=== PATIENT | female | born 1995 ===

== ENCOUNTER 2020-08-26 04:44 | Observation (INO) | payer MEDICAID ==
[~2020-08-26] VITALS: Ht 160 cm; Wt 94.8 kg
[2020-08-26] MEDS ORDERED: cefTRIAXone 1,000 MG VIAL ONE (05:27)
[2020-08-26] MEDS: NACL 0.9% 1,000 ML IV SCH ×2 (05:31→06:54)
[2020-08-26 05:33] LABS: APPEARANCE,URINE CLEAR (CLEAR); BILIRUBIN,URINE NEGATIVE (NEGATIVE); BLOOD, URINE TRACE-I (NEGATIVE); COLOR,URINE YELLOW (YELLOW); LEUKOCYTE ESTERASE ,URINE NEGATIVE (NEGATIVE); NITRITE, URINE POSITIVE (NEGATIVE); PH,URINE 7.5 (5.0-9.0); UGLUCOSE TRACE (NEGATIVE)
[2020-08-26] MEDS ORDERED: PRETAB PO (05:42)
[2020-08-26] MEDS ORDERED: METR500T1 PO (05:42)
[2020-08-26] MEDS ORDERED: FERR325E14 PO (05:42)
[2020-08-26 05:43] VITALS: BP 122/74
[2020-08-26 05:45] LABS: RBC,URINE 0-5 /HPF (0-5); WBC,URINE 0-5 /HPF (0-5)
--- NOTE | 2020-08-26 06:43 | NUR ---
PATIENT HAS BEEN SCREENED AND CATEGORIZED LOW NUTRITION RISK. PATIENT WILL BE SEEN WITHIN 7 DAYS OF ADMISSION. 09/02/20 LORRAINE CADET MS, RDN
== END 2020-08-26 09:35 | disposition home or self-care (01) ==
LOC: MLD 04:44
PROVIDERS: ADMIT Obstetrics & Gynecology; ATTEND Obstetrics & Gynecology
DX: O62.9 Abnormality of forces of labor, unspecified (principal); O26.893 Other specified pregnancy related conditions, third trimester; R30.9 Painful micturition, unspecified; Z87.440 Personal history of urinary (tract) infections; Z3A.35 35 weeks gestation of pregnancy
CPT/HCPCS: 59025; 81001; 96360; 96361; G0378; J0696

== ENCOUNTER 2021-05-05 00:14 | Emergency (ER) | payer MEDICAID ==
[~2021-05-05] VITALS: Ht 160 cm; Wt 81.6 kg
[~2021-05-05 00:14] MED LIST: FERR325E14 PO; METR500T1 PO; PRETAB PO
[2021-05-05 00:15] VITALS: BP 144/64
--- NOTE | 2021-05-05 00:18 | NUR ---
TO LOBBY A/W BED AMBULATORY
[2021-05-05 00:25] VITALS: BP 144/64
--- NOTE | 2021-05-05 00:40 | NUR ---
SEEN AND EXAMINED BY YEIMI
[2021-05-05] MEDS ORDERED: NACL 0.9% 1,000 ML IV ONE (00:45)
[2021-05-05] MEDS ORDERED: methylPREDNISolone SS 125 MG in WATER STERILE 2 ML IV ONE (00:45)
[2021-05-05] MEDS ORDERED: ZINC SULF 220 MG CAP PO ONE (00:45)
[2021-05-05] MEDS ORDERED: methylPREDNISolone SS 125 MG/2 ML VIAL ONE (00:51)
[2021-05-05] MEDS ORDERED: WATER STERILE 10 ML MC ONE (00:51)
[2021-05-05] MEDS ORDERED: EPINEPHrine 1 MG/ML AMP SUBQ ONE (02:00)
[2021-05-05] MEDS ORDERED: diphenhydrAMINE 50 MG/ML VIAL IVP ONE (02:00)
[2021-05-05] MEDS ORDERED: FEXO180T82 PO (02:47)
[2021-05-05] MEDS ORDERED: PRED20TA5 PO (02:47)
== END 2021-05-05 03:05 | disposition home or self-care (01) ==
LOC: MED 00:14
DX: U07.1 COVID-19 (principal); L50.9 Urticaria, unspecified; Z79.899 Other long term (current) drug therapy
CPT/HCPCS: 96361; 96372; 96374; 96375; 99284; J0171; J1200; J2930

== ENCOUNTER 2021-11-09 19:07 | Emergency (ER) | payer MEDICAID, OTHER ==
[~2021-11-09] VITALS: Ht 160 cm; Wt 88.5 kg
[~2021-11-09 19:07] MED LIST changes: +FEXO180T82 PO; +PRED20TA5 PO
[2021-11-09 19:40] VITALS: BP 107/67
--- NOTE | 2021-11-09 19:53 | NUR ---
Dr. Kyle examing patient.
[2021-11-09] MEDS ORDERED: NACL 0.9% 1,000 ML IV ONE (20:00)
[2021-11-09] MEDS ORDERED: ONDANSETRON 4 MG/2 ML VIAL IVP ONE (20:00)
--- NOTE | 2021-11-09 20:02 | NUR ---
PT TO BED #5
[2021-11-09 20:36] LABS: APPEARANCE,URINE CLEAR (CLEAR); BILIRUBIN,URINE NEGATIVE (NEGATIVE); BLOOD, URINE 2+ (NEGATIVE); COLOR,URINE YELLOW (YELLOW); LEUKOCYTE ESTERASE ,URINE TRACE (NEGATIVE); NITRITE, URINE POSITIVE (NEGATIVE); UGLUCOSE NEGATIVE (NEGATIVE)
[2021-11-09 20:57] LABS: RBC,URINE 11-20 (MOD) /HPF (0-5)
[2021-11-09 20:58] LABS: OTHER CASTS, URINE None Seen /LPF (None Seen)
[2021-11-09 21:10] LABS: ALBUMIN 4.2 g/dL (3.4-5.0); ANION GAP 15.5 (8-16); CREATININE 0.8 mg/dL (0.6-1.3); POTASSIUM 3.5 mmol/L (3.5-5.1); TOTAL BILIRUBIN 0.8 mg/dL (0.0-1.0)
[2021-11-09] MEDS ORDERED: ONDANSETRON 4 MG/2 ML VIAL ONE (21:15)
[2021-11-09 21:17] LABS: BASOPHILS % (AUTO) 0.3 % (0.0-2.0); HEMATOCRIT 38.7 % (36-48); HEMOGLOBIN 12.7 g/dL (12.0-16.0); LYMPHOCYTES # (AUTO) 0.8 K/uL (2.5-16.5); MEAN CORPUSCULAR HEMOGLOBIN 29 pg (27-31); MEAN CORPUSCULAR HGB CONC 33 g/dL (33-37); MEAN CORPUSCULAR VOLUME 86.9 fL (80-94); MONOCYTES # (AUTO) 0.9 K/uL (0.8-1.0); MONOCYTES % (AUTO) 6.5 % (1.7-9.3); NEUTROPHILS # (AUTO) 12.3 K/uL (1.8-7.7); NEUTROPHILS % (AUTO) 87.2 % (42.2-75.2); PLATELET COUNT (AUTO) 238 K/uL (140-450); RED BLOOD CELL COUNT(AUTO) 4.45 MIL/uL (4.20-5.40); RED CELL DISTRIBUTION WIDTH 13.9 % (11.6-13.7); WHITE BLOOD COUNT (AUTO) 14.1 K/uL (4.8-10.8)
--- NOTE | 2021-11-09 21:21 | NUR ---
26 Y/O F BIB SELF FOR FEVER, CHILLS, N, V SINCE YESTERDAY. PT DENIES DIARHHEA. PT LMP 1 MONTH AGO BUT HAS IUD. PT TOOK TYLENOL AND AN "ANTIBIOTIC PILL" PT STATES 8/10 PAIN. PMH: KIDNEY INFECTIONS. MIGRAINES RX:DENIES ALLERGIES: NONE
[2021-11-09] MEDS ORDERED: cefTRIAXone 1,000 MG VIAL ONE (21:30)
[2021-11-09] MEDS ORDERED: CIPR500T4 PO (21:34)
[2021-11-09] MEDS ORDERED: NAPR-54 PO (21:39)
[2021-11-09] MEDS ORDERED: ONDA-188 SL (21:39)
[2021-11-09] MEDS ORDERED: KETOROLAC 30 MG/ML VIAL IVP ONE (22:20)
--- NOTE | 2021-11-09 22:36 | NUR ---
PT AMBULATED TO RESTROOM
[2021-11-09] MEDS ORDERED: ACETAMINOPHEN EXTRA STRENGTH 500 MG TAB PO ONE (22:50)
[2021-11-09 23:53] VITALS: BP 110/62
--- NOTE | 2021-11-09 23:53 | NUR ---
Patient discharged with v/s stable. Written and verbal after care instructions given and explained. Patient alert, oriented and verbalized understanding of instructions. Ambulatory with steady gait. All questions addressed prior to discharge. ID band removed. Patient advised to follow up with PMD. Rx of CIPRO given. Opportunity to ask questions provided and answered.
--- NOTE | 2021-11-09 23:58 | NUR ---
The patient's care was reviewed and supervised by Kristel Metcalf RN.
--- NOTE | 2021-11-12 10:22 | NUR ---
LATE ENTRY. 0.9% NS DISCONTINUED AT 2353 ON 11/09/21
== END 2021-11-09 23:53 | disposition home or self-care (01) ==
LOC: MED 19:07
DX: N12 Tubulo-interstitial nephritis, not specified as acute or chronic (principal); Z79.899 Other long term (current) drug therapy
CPT/HCPCS: 36415; 80053; 81001; 81025; 83605; 85025; 87040; 96365; 96375; 99285; J0696; J1885; J2405; J7030